=== PATIENT | female | born 1965 | race Caucasian/White ===

== ENCOUNTER 2022-10-25 07:04 | Day surgery (SDC) | payer OTHER, SELFPAY ==
[2022-09-15 08:55] VITALS: BMI 27.7
[2022-10-12 08:41] VITALS: BMI 27.6
--- NOTE | 2022-10-22 08:27 | P.PNAN_ITS ---
Anes - Initial Pre Proc Eval Procedure: Operation Date: 10/25/22 08:30 Proposed Procedures p Screening Colonoscopy - Adryan Case MD Date/Time: 10/22/22 08:27 Surgeon: Adryan Case MD Pre Op Diagnosis: Histoy of Polyps Patient Data Age: 57 Gender: F Height: 1.75 m Weight: 85 kg Allergies Allergy/AdvReac Type Severity Reaction Status Date / Time No Known Allergies Allergy Unknown Verified 10/25/22 07:41 Home Medications Medication Instructions Recorded Confirmed Type baclofen 10 mg tablet 10 mg PO QHS #90 tabs 06/01/22 10/12/22 Rx pantoprazole 40 mg tablet,delayed 40 mg PO QPM #90 tabs 06/01/22 10/12/22 Rx release estradiol 1 mg tablet 1 mg PO DAILY #90 tabs 08/31/22 10/12/22 Rx metoprolol succinate 100 mg 100 mg PO DAILY #90 tabs 08/31/22 10/12/22 Rx tablet,extended release 24 hr medroxyprogesterone 2.5 mg tablet 2.5 mg PO DAILY #90 tabs 09/13/22 10/12/22 Rx sodium,potassium,mag sulfates 17.5 See Rx Instructions PO .COMPLEX 09/15/22 10/25/22 Rx gram-3.13 gram-1.6 gram oral soln #354 mL (Suprep Bowel Prep Kit) sumatriptan succinate 100 mg tablet See Rx Instructions PO .COMPLEX 10/12/22 10/12/22 History PRN Migraine Headache Patient hx anesthesia problems: none Family hx anesthesia problems: none Results Review: All pre-operative results and documents have been reviewed as part of the pre- operative evaluation. COUNTS INCLUDE 234 BEDS AT THE [facility] Past Medical History Medical History (Updated 10/25/22 @ 08:13 by Adryan Case MD) Gastro-esophageal reflux disease without esophagitis Migraines Palpitations Surgical History Surgical History H/O arthroscopy of right knee History of S/P tendon repair Right thumb Family History Family History (Updated 06/01/22 @ 14:11 by Chuckie Marie MA) Grandparent Acute myocardial infarction Cerebrovascular accident Diabetes mellitus Heart disease Hypertension Other Breast cancer Father Hypertension Malignant neoplasm of prostate Social History Social History (Updated 06/01/22 @ 14:11 by Chuckie Marie MA) Smoking status: Never smoker Second hand tobacco smoke exposure: No Alcohol intake: current Substance use: never Substance use type: does not use Living arrangements: with family Gender identity (if verbalized by the patient): Female Spiritual care concerns: No Agree to blood products: Yes Anes - Eval Final PreProcedure Day of Procedure 10/22/22 08:27 Patient weight: overweight Heart: regular rate and rhythm Lungs: clear to auscultation Airway: Mallampati scale class II Neurological: alert and oriented Last oral intake: >/= 8 hours ASA classification: II Emergent: no Anesthetic plan: proceed Anesthesia type and monitoring: general GIVS and standard monitoring Results Review: All pre-operative results and documents have been reviewed as part of the pre- operative evaluation. Informed Consent: The patient's anesthetic plan and its attendant risks and benefits were discussed with the patient/family/POA. Questions were solicited and answers provided to the satisfaction of the patient/family/POA.
[2022-10-25 07:20] VITALS: BP 128/76; PULSE 66; RESP 20; TEMP 37.3; O2SAT 99
[2022-10-25] MEDS: LACTATED RINGERS 1,000 ML 150 ML IV CONT (07:45)
--- NOTE | 2022-10-25 08:11 | PM.HPGS ---
History of Present Illness History of Present Illness Consent: Risks, benefits, and alternatives have been discussed and questions answered. Patient agrees to proceed with procedure. Chief complaint: Histoy of Polyps Narrative: Shannen Carlin is a 57 year old female Presents for colonoscopy. Patient has a history of colon polyps by previous colonoscopy 5 years ago. Polyp at that time was found to be a tubular adenoma. Patient reports that her current weight appetite and bowel movements are normal. Patient denies abdominal pain. She has had no bleeding. Family history is significant her mother had colon polyps. Patient presents today for screening colonoscopy. Review of Systems Review of Systems: Review of systems noncontributory. [facility] Past Medical History Medical History (Updated 10/25/22 @ 08:13 by Adryan Case MD) Gastro-esophageal reflux disease without esophagitis Migraines Palpitations Surgical History Surgical History H/O arthroscopy of right knee History of S/P tendon repair Right thumb Family History Family History (Updated 06/01/22 @ 14:11 by Chuckie Marie MA) Grandparent Acute myocardial infarction Cerebrovascular accident Diabetes mellitus Heart disease Hypertension Other Breast cancer Father Hypertension Malignant neoplasm of prostate Social History Social History (Updated 06/01/22 @ 14:11 by Chuckie Marie MA) Smoking status: Never smoker Second hand tobacco smoke exposure: No Alcohol intake: current Substance use: never Substance use type: does not use Living arrangements: with family Gender identity (if verbalized by the patient): Female Spiritual care concerns: No Agree to blood products: Yes Meds Home Medications and Allergies Home Medications Medication Instructions Recorded Confirmed Type baclofen 10 mg tablet 10 mg PO QHS #90 tabs 06/01/22 10/12/22 Rx pantoprazole 40 mg tablet,delayed 40 mg PO QPM #90 tabs 06/01/22 10/12/22 Rx release estradiol 1 mg tablet 1 mg PO DAILY #90 tabs 08/31/22 10/12/22 Rx metoprolol succinate 100 mg 100 mg PO DAILY #90 tabs 08/31/22 10/12/22 Rx tablet,extended release 24 hr medroxyprogesterone 2.5 mg tablet 2.5 mg PO DAILY #90 tabs 09/13/22 10/12/22 Rx sodium,potassium,mag sulfates 17.5 See Rx Instructions PO .COMPLEX 09/15/22 10/25/22 Rx gram-3.13 gram-1.6 gram oral soln #354 mL (Suprep Bowel Prep Kit) sumatriptan succinate 100 mg tablet See Rx Instructions PO .COMPLEX 10/12/22 10/12/22 History PRN Migraine Headache Allergies Allergy/AdvReac Type Severity Reaction Status Date / Time No Known Allergies Allergy Unknown Verified 10/25/22 07:41 Vital Signs Vital Signs - 24 hr 10/25/22 07:20 Temperature 99.1 F Pulse Rate 66 Respiratory Rate 20 Blood Pressure 128/76 Pulse Oximetry 99 Oxygen Delivery Room Air Exam Narrative: Physical exam reveals patient to be alert. Vital signs stable. HEENT exam is unremarkable. Patient is anicteric. Lungs are clear to auscultation and percussion. Heart is without murmur or extra sounds. Abdomen bowel sounds are present soft nontender with no organomegaly. Digital external rectal exam is normal. Assessment and Plan Assessment and plan (1) History of colon polyps: Code(s): Z86.010 - Personal history of colonic polyps Status: Acute Assessment and Plan: Patient has a history of adenomatous colon polyp removed from the cecum 5 years ago. She also has a family history that her mother had colon polyps. Plan for surveillance colonoscopy now. Consider this in 5 years as well.
[2022-10-25 08:37] VITALS: BP 103/83; PULSE 73; RESP 16; O2SAT 97
[2022-10-25 08:47] VITALS: BP 123/80; PULSE 70; RESP 20; O2SAT 99
[2022-10-25 08:57] VITALS: BP 128/82; PULSE 59; RESP 20; O2SAT 99
--- NOTE | 2022-10-25 12:17 | WPDANESPN ---
Anes - Prog Note Post-Op Date/Time: 10/25/22 12:17 Vital Signs: Last Vital Signs Temp 37.3 C 10/25/22 07:20 Pulse 59 L 10/25/22 08:57 Resp 20 10/25/22 08:57 BP 128/82 10/25/22 08:57 Pulse Ox 99 10/25/22 08:57 O2 Del Method Room Air 10/25/22 08:57 Pain Score (VAS): 0 I/O: Intake & Output 10/24/22 10/25/22 10/25/22 23:59 07:59 15:59 Intake Total 450 Balance 450 Patient Feedback: Patient satisfied with anesthetic care.
== END 2022-10-25 09:18 | disposition home or self-care (01) ==
PROVIDERS: PCP Family Medicine Adolescent Medicine; Visit Provider Internal Medicine Gastroenterology
PROC: 0DJD8ZZ Inspection of Lower Intestinal Tract, Via Natural or Artificial Opening Endoscopic (ICD-10-PCS; CPT 45378; principal; 2022-10-25 08:30)
DX: Z86.010 Personal history of colon polyps (principal)
CPT/HCPCS: 45378

== ENCOUNTER 2023-12-07 07:15 | Day surgery (SDC) | payer OTHER, SELFPAY ==
[2023-11-22 10:09] VITALS: BMI 28.1
[2023-11-22 11:51] VITALS: BMI 28.0
--- NOTE | 2023-12-07 07:59 | WPDANESEPPF ---
Anes - Initial Pre Proc Eval Procedure: Operation Date: 12/07/23 09:30 Proposed Procedures p Esophagogastroduodenoscopy - Adryan Case MD Date/Time: 12/07/23 07:59 Surgeon: Adryan Case MD Pre Op Diagnosis: GERD without esophagitis Patient Data Age: 58 Gender: F Height: 1.75 m Weight: 86 kg Allergies Allergy/AdvReac Type Severity Reaction Status Date / Time No Known Allergies Allergy Unknown Verified 12/07/23 08:19 Home Medications Medication Instructions Recorded Confirmed Type estradiol 1 mg tablet 1 mg PO DAILY #90 tabs 06/03/23 12/07/23 Rx medroxyprogesterone 2.5 mg tablet 2.5 mg PO DAILY #90 tabs 06/03/23 12/07/23 Rx triamcinolone acetonide 0.1 % 1 applic dental TID PRN mouth 07/14/23 12/07/23 Rx dental paste irritation #5 grams baclofen 10 mg tablet 10 mg PO QHS #90 tabs 09/01/23 12/07/23 Rx sumatriptan succinate 100 mg tablet See Rx Instructions PO .COMPLEX 09/16/23 12/07/23 Rx PRN Migraine Headache #9 tabs pantoprazole 40 mg tablet,delayed 40 mg PO BID #90 tabs 11/08/23 12/07/23 Rx release propranolol 40 mg tablet 40 mg PO Q12H #180 tabs 11/08/23 12/07/23 Rx cholecalciferol (vitamin D3) 1,250 1,250 mcg PO WEEKLY #8 caps 11/23/23 12/07/23 Rx mcg (50,000 unit) capsule Patient hx anesthesia problems: none Family hx anesthesia problems: none Results Review: All pre-operative results and documents have been reviewed as part of the pre-operative evaluation. [facility] Past Medical History Medical History Gastro-esophageal reflux disease without esophagitis Migraines Palpitations Surgical History Surgical History H/O arthroscopy of right knee History of S/P tendon repair Right thumb Family History Family History Grandparent Acute myocardial infarction Cerebrovascular accident Diabetes mellitus Heart disease Hypertension Other Breast cancer Father Hypertension Malignant neoplasm of prostate Social History Social History Smoking status: Never smoker Second hand tobacco smoke exposure: No Alcohol intake: current Alcohol use details: socially Substance use: never Substance use type: does not use Lack of Transportation: No Lack of Food: Never True Current Housing: I Have Housing Concerned About Future Housing: No Difficulty Paying Gas/Electric Bills: No Difficulty Paying for Meds: No Currently Unemployed: No Education: Master's Degree or Higher Difficulty w/ Childcare or Family Care: No Living arrangements: with family Occupation/Education: occupation Gender identity (if verbalized by the patient): Female Spiritual care concerns: No Agree to blood products: Yes Anes - Eval Final PreProcedure Day of Procedure 12/07/23 07:59 Patient weight: overweight Heart: regular rate and rhythm Lungs: clear to auscultation Airway: Mallampati scale class II Neurological: alert and oriented Last oral intake: >/= 8 hours ASA classification: II Emergent: no Anesthetic plan: proceed Anesthesia type and monitoring: general GIVS and standard monitoring Results Review: All pre-operative results and documents have been reviewed as part of the pre-operative evaluation. Informed Consent: The patient's anesthetic plan and its attendant risks and benefits were discussed with the patient/family/POA. Questions were solicited and answers provided to the satisfaction of the patient/family/POA.
[2023-12-07 08:28] VITALS: BP 119/63; PULSE 65; RESP 16; TEMP 36.6; O2SAT 99; BMI 28.1
[2023-12-07] MEDS: LACTATED RINGERS 1,000 ML 150 ML IV CONT (08:59)
--- NOTE | 2023-12-07 09:12 | PM.HPGS ---
History of Present Illness History of Present Illness Consent: Risks, benefits, and alternatives have been discussed and questions answered. Patient agrees to proceed with procedure. Chief complaint: GERD without esophagitis Narrative: Shannen Carlin is a 58 year old female presents for EGD. Planes of chest fullness. She has felt have acid reflux. She has been on pantoprazole 40mg p.o. daily Santyl E over the last several weeks she is instructed to take additional pantoprazole 20mg at bedtime. She states symptoms have subsequently improved. Patient denies abdominal pain. She has had no bleeding. We history noncontributory. Because of ongoing substernal pressure consistent with acid reflux follow-up EGD advised at this time. Review of Systems Review of Systems: Review of systems noncontributory. [facility] Past Medical History Medical History Gastro-esophageal reflux disease without esophagitis Migraines Palpitations Surgical History Surgical History H/O arthroscopy of right knee History of S/P tendon repair Right thumb Family History Family History Grandparent Acute myocardial infarction Cerebrovascular accident Diabetes mellitus Heart disease Hypertension Other Breast cancer Father Hypertension Malignant neoplasm of prostate Social History Social History Smoking status: Never smoker Second hand tobacco smoke exposure: No Alcohol intake: current Alcohol use details: socially Substance use: never Substance use type: does not use Lack of Transportation: No Lack of Food: Never True Current Housing: I Have Housing Concerned About Future Housing: No Difficulty Paying Gas/Electric Bills: No Difficulty Paying for Meds: No Currently Unemployed: No Education: Master's Degree or Higher Difficulty w/ Childcare or Family Care: No Living arrangements: with family Occupation/Education: occupation Gender identity (if verbalized by the patient): Female Spiritual care concerns: No Agree to blood products: Yes Meds Home Medications and Allergies Home Medications Medication Instructions Recorded Confirmed Type estradiol 1 mg tablet 1 mg PO DAILY #90 tabs 06/03/23 12/07/23 Rx medroxyprogesterone 2.5 mg tablet 2.5 mg PO DAILY #90 tabs 06/03/23 12/07/23 Rx triamcinolone acetonide 0.1 % 1 applic dental TID PRN mouth 07/14/23 12/07/23 Rx dental paste irritation #5 grams baclofen 10 mg tablet 10 mg PO QHS #90 tabs 09/01/23 12/07/23 Rx sumatriptan succinate 100 mg tablet See Rx Instructions PO .COMPLEX 09/16/23 12/07/23 Rx PRN Migraine Headache #9 tabs pantoprazole 40 mg tablet,delayed 40 mg PO BID #90 tabs 11/08/23 12/07/23 Rx release propranolol 40 mg tablet 40 mg PO Q12H #180 tabs 11/08/23 12/07/23 Rx cholecalciferol (vitamin D3) 1,250 1,250 mcg PO WEEKLY #8 caps 11/23/23 12/07/23 Rx mcg (50,000 unit) capsule Allergies Allergy/AdvReac Type Severity Reaction Status Date / Time No Known Allergies Allergy Unknown Verified 12/07/23 08:19 Vital Signs Vital Signs - 24 hr 12/07/23 08:28 Temperature 98 F Pulse Rate 65 Respiratory Rate 16 Blood Pressure 119/63 Pulse Oximetry 99 Oxygen Delivery Room Air Exam Narrative: Physical exam reveals patient to be alert. Vital signs stable. HEENT exam is unremarkable. Patient is anicteric. Lungs are clear to auscultation and percussion. Heart is without murmur or extra sounds. Abdomen bowel sounds are present soft nontender with no organomegaly. Digital external rectal exam normal. Assessment and Plan Assessment and plan (1) Gastro-esophageal reflux disease without esophagitis: Code(s): K21.9 - Gastro-esophageal reflux disease without esophag
[2023-12-07 09:40] VITALS: BP 119/77; PULSE 65; RESP 16; O2SAT 98
[2023-12-07 09:50] VITALS: BP 127/82; PULSE 65; RESP 16; O2SAT 96
[2023-12-07 10:00] VITALS: BP 124/68; PULSE 60; RESP 16; O2SAT 99
--- NOTE | 2023-12-07 11:03 | SUR.PHASEII ---
1005 Waiting for ride
--- NOTE | 2023-12-07 13:20 | WPDANESPN ---
Anes - Prog Note Post-Op Date/Time: 12/07/23 13:20 Cardiovascular status: normal Respiratory status: normal Airway patency: baseline Mental status: baseline Post-Op hydration status: normal Vital Signs: Last Vital Signs Temp 36.6 C 12/07/23 08:28 Pulse 60 12/07/23 10:00 Resp 16 12/07/23 10:00 BP 124/68 12/07/23 10:00 Pulse Ox 99 12/07/23 10:00 O2 Del Method Room Air 12/07/23 10:00 Pain Score (VAS): 0 I/O: Intake & Output 12/06/23 12/07/23 12/07/23 23:59 07:59 15:59 Intake Total 400 Balance 400 Post-procedural complaints: none Patient Feedback: Patient satisfied with anesthetic care. Other Findings: Patient vital signs back to baseline. Patient denies nausea and vomiting. Patient's pain under control. Patient OK for discharge.
== END 2023-12-07 10:35 | disposition home or self-care (01) ==
PROVIDERS: PCP Family Medicine Adolescent Medicine; Visit Provider Internal Medicine Gastroenterology
PROC: 0DJ08ZZ Inspection of Upper Intestinal Tract, Via Natural or Artificial Opening Endoscopic (ICD-10-PCS; CPT 43235; principal; 2023-12-07 09:30)
DX: K21.9 Gastro-esophageal reflux disease without esophagitis (principal)
CPT/HCPCS: 43239

== ENCOUNTER 2025-03-29 07:49 | Outpatient (CLI) | payer OTHER, SELFPAY ==
--- NOTE | ~2025-03-29 | DEXA_ITS ---
Bone Density Report Name: CHRISTOPHER TREVINO Age: 60 Sex: Female Ethnicity: White Date of : 1965 Indication: postmenopausal; screening for osteoporosis; Referring Provider: MAEVE BAUMANN Study: Bone densitometry was performed. Exam Date: March 29, 2025 Accession number: [id number] Bone Density: Region BMD T-score Z-score Classification AP Spine(L1-L4) 1.000 -0.4 0.9 Normal Femoral Neck (Left) 0.777 -0.6 0.6 Normal Total Hip (Left) 0.984 0.3 1.2 Normal Femoral Neck (Right) 0.751 -0.9 0.3 Normal Total Hip (Right) 0.909 -0.3 0.6 Normal Femoral Neck Mean 0.764 -0.8 0.4 Normal Total Hip Mean 0.946 0.0 0.9 Normal World Health Organization criteria for BMD impression classify patients as: Normal (T-score at or above -1.0), Osteopenia (T-score between -1.0 and -2.5), or Osteoporosis (T-score at or below -2.5). 10-year Fracture Risk: FRAX not reported because: All T-scores for Spine Total, Hip Total, Femoral Neck at or above -1.0 Clinical Information Provided by Patient: Has used the following medications: Vitamin D, Calcium Patient maximum height was 69 Menopause Age: 52 Drinks caffeinated beverages Onset of menses at age 14 Number of children 2 Missed period for more than 6 months in a row Impression: The patient has normal bone mass. Discussion: BONE DENSITY IS ABOVE THE MINIMUM DESIRABLE LEVEL AT ALL SKELETAL SITES TESTED. This patient?s bone mineral density is above the minimum desirable level (T-score -1.0 or better) at all sites measured. The patient should follow a healthful lifestyle (good nutrition with adequate calcium and vitamin D, and appropriate weight-bearing exercise). Follow-Up: Consider repeating this study in 5 years or sooner if there is some new clinical indication. Reported by: JOANNE on 03/29/2025 8:07:00 AM. Reviewed, dictated and finalized at location A.
--- OUTSIDE RECORDS SUMMARY | 2025-03-29 07:54 | XMS_ITS | Clinical Summary ---
Author Organization [facility] al Address [address] [place] [address] Care Team Providers Care Free Lance Model Name Role Phone Esau Jett MD Primary Care Prov ider Allergies No known active allergies Medications ibuprofen (ADVIL,MOTRIN) 600 mg tabletIndicatio ns:stop 5 days before surgery Take 600 mg by mouth every 6 (six) hours as needed for pain Active acetaminophen-a spirin-caffeine (EXCEDRIN MIGRAINE) 250-250-65 mg per tabletIndicatio ns:stop 5 days before surgery Take 1 tablet by mouth every 6 (six) hours as needed Active diclofenac sodium (VOLTAREN) 1 % gel Apply 2 g topically 4 (four) times a day 1 Tube 0 Active Additional Information Patient not taking.Reported on 07/09/2021 baclofen (LIORESAL) 10 mg tablet Take 10 mg by mouth nightly Active dilTIAZem CD/XR/XT (CARDIZEM CD,DILACOR XR) 120 mg 24 hr capsule Take 1 capsule (120 mg total) by mouth daily 30 capsule 11 1 Active Additional Information Patient not taking.Reported on 07/09/2021 estradiol-noret hindrone (ACTIVELLA) 0.5-0.1 mg per tablet Take 1 tablet by mouth daily 1 Active Active Problems Problem Noted Date Diagnosed Date Tear of lateral meniscus of right knee, current 12/28/2018 Overview (12/28/2018): Added automatically from request for surgery [id number] Irregular menses 02/24/2015 Mammogram abnormal 05/14/2013 Encounters Date Type Department Care Team Description 02/12/2025 2:56 PM CDT - 02/12/2025 11:59 PM CDT Hospital Encounter [facility] - Breast Imaging [address] [place] [address] Abnormality of left breast on screening mammography Discharge Disposition: Discharge to home or self care 02/12/2025 2:56 PM CDT - 02/12/2025 11:59 PM CDT Hospital Encounter [facility] - Breast Imaging [address] [place] [address] Abnormality of left breast on screening mammography Discharge Disposition: Discharge to home or self care 02/06/2025 11:00 AM CDT - 02/06/2025 11:59 PM CDT Hospital Encounter [facility] [address] [place] [address] Screening mammogram, encounter for Discharge Disposition: Discharge to home or self care from Last 3 Months Surgical History Surgery Date Site/Laterality Comments SECTION x 2 CYSTOSCOPY for Kidney Stones WISDOM TOOTH EXTRACTION TENDON REPAIR Right Thumb Medical History Medical History Date Comments Hx Other Medical 1996 and 1999 Kidney stone Family History Medical History Relation Name Comments Cancer Other 1 Family history of Cancer, unknown; Arthritis Other 2 Family history of Arthritis; Hypertension Other 3 Family history of Hypertension; Diabetes type II Other 4 Family hist ory of Diabetes mellitus type 2; Relation Name Status Comments Other 1 Other 2 Other 3 Other 4 Social History Tobacco Use Types Packs/Day Years Used Date Smoking Tobacco: Never Smokeless Tobacco: Never Alcohol Use Standard Drinks/Week Comments Yes 0 (1 standard drink = 0.6 oz pur e alcohol) occasionally Comments No Sex and Gender Information Value Date Recorded Sex Assigned at Not on file Legal 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 Gender Identity Not on file Sexual Orientation Not on file Obstetrics History Last Filed Vital Signs Vital Sign Reading Time Taken Comments Blood Pressure 127/73 07/09/2021 2:59 PM CDT Pulse 71 07/09/2021 2:59 PM CDT Temperature 37.1 C (98.8 F) 01/11/2019 1:52 PM CDT Respiratory Rate 15 05/18/2021 7:57 AM CDT Oxygen Saturation 100% 01/11/2019 1:52 PM CDT Inhaled Oxygen Concentration - - Weight 80.1 kg (176 lb 9.6 oz) 07/09/2021 2:59 P M CDT Height 175.3 cm (5' 9) 07/09/2021 2:59 PM CDT Body Mass Index 26.08 07/09/2021 2:59 PM CDT Plan of Treatment Health Maintenance Due Date Last Done Comments Cervical Cancer Screening 1965 Colon Cancer Screening-Colonoscopy 1965 Depression Screening 1967 Hepatitis C Screening 1967 Hepatitis B Screening 1985 Regular Well Visit/Exam 18-64 1985 Zoster Vaccine (1 of 2) 2017 DTaP/Tdap/Td Vaccine (2 - Td or Tdap) 06/21/2023 06/21/2013 Influenza Vaccine (Season Ended) 2025 Breast Cancer Screening-Mammogram 02/06/2026 02/06/2025, 01/25/2024, 12/27/2022, Additional history exists Pneumococcal vaccine <65 Aged Out No longer eligible based on patient's age to complete this topic Procedures Procedure Name Priority Date/Time Associated Diagnosis Comments US BREAST LEFT LIMITED Routine 02/12/2025 3:49 PM CDT Abnormality of left breast on screening mammography DIAGNOSTIC MAMMOGRAM LEFT W JIAN Routine 02/12/2025 3:14 PM CDT Abnormality of left breast on screening mammography SCREENING MAMMOGRAM BILATERAL W JIAN Schedule Routine, Read Routine (OP Routine) 02/06/2025 11:14 AM CDT Screening mammogram, encounter for from Last 3 Months Results * US Breast Left Limited (02/12/2025 3:49 PM CDT) Anatomical Region Laterality Modality Breast Left Ultrasound 02/12/2025 4:20 PM CDT Impressions 02/12/2025 4:20 PM CDT 1 cm LEFT breast cyst at the site of the previously noted focal asymmetry. Incidentally noted left breast mass demonstrating long-term stability since at least 2012. OVERALL FINAL ASSESSMENT: BI-RADS Category 2: Benign. RECOMMENDATION: Annual screening mammography is recommended. Dictated by: Juan José Ann M.D. (Ramanan) The radiology attending physician has personally reviewed this study, and had reviewed and/or edited this written report and agrees with it. Electronically signed by: Sera Murphy M.D. Narrative 02/12/2025 4:20 PM CDT EXAMINATION: LEFT UNILATERAL DIGITAL DIAGNOSTIC MAMMOGRAM AND DIGITAL BREAST TOMOSYNTHESIS; LEFT BREAST SONOGRAM HISTORY: 60-year-old female who presents as a screening call back for a LEFT breast focal asymmetry. COMPARISON: Mammograms dating as far back as 2014 TECHNIQUE: Full field digital mammographic views of the LEFT breast were performed, including computer aided detection (CAD) and digital breast tomosynthesis (DBT). Directed ultrasound evaluation of the LEFT breast was performed. BREAST PARENCHYMAL COMPOSITION: The breasts are heterogeneously dense, which may obscure small masses. MAMMOGRAM FINDINGS: Again seen is a round mass in the inferior outer LEFT breast approximately 1 cm from the nipple. There are no new suspicious masses or calcifications in the LEFT breast. SONOGRAM FINDINGS: Targeted ultrasound of the left breast, 9:00 subareolar region was performed. There is a 0.6 x 0.9 x 1.0 cm (length by width by height) cyst. There is an incidentally noted 1.9 x 1.4 x 0.6 cm circumscribed, parallel mass in the left breast 2:00 2 cm from the nipple, unchanged from 2013. Procedure Note Sera Murphy MD - 02/12/2025 EXAMINATION: LEFT UNILATERAL DIGITAL DIAGNOSTIC MAMMOGRAM AND DIGITAL BREAST TOMOSYNTHESIS; LEFT BREAST SONOGRAM HISTORY: 60-year-old female who presents as a screening call back for a LEFT breast focal asymmetry. COMPARISON: Mammograms dating as far back as 2014 TECHNIQUE: Full field digital mammographic views of the LEFT breast were performed, including computer aided detection (CAD) and digital breast tomosynthesis (DBT). Directed ultrasound evaluation of the LEFT breast was performed. BREAST PARENCHYMAL COMPOSITION: The breasts are heterogeneously dense, which may obscure small masses. MAMMOGRAM FINDINGS: Again seen is a round mass in the inferior outer LEFT breast approximately 1 cm from the nipple. There are no new suspicious masses or calcifications in the LEFT breast. SONOGRAM FINDINGS: Targeted ultrasound of the left breast, 9:00 subareolar region was performed. There is a 0.6 x 0.9 x 1.0 cm (length by width by height) cyst. There is an incidentally noted 1.9 x 1.4 x 0.6 cm circumscribed, parallel mass in the left breast 2:00 2 cm from the nipple, unchanged from 2013. IMPRESSION: 1 cm LEFT breast cyst at the site of the previously noted focal asymmetry. Incidentally noted left breast mass demonstrating long-term stability since at least 2012. OVERALL FINAL ASSESSMENT: BI-RADS Category 2: Benign. RECOMMENDATION: Annual screening mammography is recommended. Dictated by: Juan José Ann M.D. (Ramanan) The radiology attending physician has personally reviewed this study, and had reviewed and/or edited this written report and agrees with it. Electronically signed by: Sera Murphy M.D. Esau Jett MD IMG MAMMO PROCEDUR ES Final Result * Diagnostic Mammogram Left W Jian (02/12/2025 3:14 PM CDT) Anatomical Region Laterality Modality Breast Left Mammography 02/12/2025 3:40 PM CDT Impressions 02/12/2025 4:20 PM CDT 1 cm LEFT breast cyst at the site of the previously noted focal asymmetry. Incidentally noted left breast mass demonstrating long-term stability since at least 2012. OVERALL FINAL ASSESSMENT: BI-RADS Category 2: Benign. RECOMMENDATION: Annual screening mammography is recommended. Dictated by: Juan José Ann M.D. (Ramanan) The radiology attending physician has personally reviewed this study, and had reviewed and/or edited this written report and agrees with it. Electronically signed by: Sera Murphy M.D. Narrative 02/12/2025 4:20 PM CDT EXAMINATION: LEFT UNILATERAL DIGITAL DIAGNOSTIC MAMMOGRAM AND DIGITAL BREAST TOMOSYNTHESIS; LEFT BREAST SONOGRAM HISTORY: 60-year-old female who presents as a screening call back for a LEFT breast focal asymmetry. COMPARISON: Mammograms dating as far back as 2014 TECHNIQUE: Full field digital mammographic views of the LEFT breast were performed, including computer aided detection (CAD) and digital breast tomosynthesis (DBT). Directed ultrasound evaluation of the LEFT breast was performed. BREAST PARENCHYMAL COMPOSITION: The breasts are heterogeneously dense, which may obscure small masses. MAMMOGRAM FINDINGS: Again seen is a round mass in the inferior outer LEFT breast approximately 1 cm from the nipple. There are no new suspicious masses or calcifications in the LEFT breast. SONOGRAM FINDINGS: Targeted ultrasound of the left breast, 9:00 subareolar region was performed. There is a 0.6 x 0.9 x 1.0 cm (length by width by height) cyst. There is an incidentally noted 1.9 x 1.4 x 0.6 cm circumscribed, parallel mass in the left breast 2:00 2 cm from the nipple, unchanged from 2013. Procedure Note Sera Murphy MD - 02/12/2025 EXAMINATION: LEFT UNILATERAL DIGITAL DIAGNOSTIC MAMMOGRAM AND DIGITAL BREAST TOMOSYNTHESIS; LEFT BREAST SONOGRAM HISTORY: 60-year-old female who presents as a screening call back for a LEFT breast focal asymmetry. COMPARISON: Mammograms dating as far back as 2014 TECHNIQUE: Full field digital mammographic views of the LEFT breast were performed, including computer aided detection (CAD) and digital breast tomosynthesis (DBT). Directed ultrasound evaluation of the LEFT breast was performed. BREAST PARENCHYMAL COMPOSITION: The breasts are heterogeneously dense, which may obscure small masses. MAMMOGRAM FINDINGS: Again seen is a round mass in the inferior outer LEFT breast approximately 1 cm from the nipple. There are no new suspicious masses or calcifications in the LEFT breast. SONOGRAM FINDINGS: Targeted ultrasound of the left breast, 9:00 subareolar region was performed. There is a 0.6 x 0.9 x 1.0 cm (length by width by height) cyst. There is an incidentally noted 1.9 x 1.4 x 0.6 cm circumscribed, parallel mass in the left breast 2:00 2 cm from the nipple, unchanged from 2013. IMPRESSION: 1 cm LEFT breast cyst at the site of the previously noted focal asymmetry. Incidentally noted left breast mass demonstrating long-term stability since at least 2012. OVERALL FINAL ASSESSMENT: BI-RADS Category 2: Benign. RECOMMENDATION: Annual screening mammography is recommended. Dictated by: Juan José Ann M.D. (Ramanan) The radiology attending physician has personally reviewed this study, and had reviewed and/or edited this written report and agrees with it. Electronically signed by: Sera Murphy M.D. us Esau Jett MD IMG MAMMO PROCEDUR ES Final Result * Screening Mammogram Bilateral W Jian (02/06/2025 11:14 AM CDT) Anatomical Region Laterality Modality Breast Bilateral Mammography Narrative 02/07/2025 2:11 PM CDT Mammogram Technique: Bilateral Digital Breast Tomosynthesis, Bilateral C-view 2D Screening mammogram. Views obtained: bilateral craniocaudal and bilateral mediolateral oblique. Computer Aided Detection was performed. Mammogram Findings: The present examination has been compared to prior imaging studies performed at [facility] on 09/04/2020, 11/06/2021, 12/27/2022 and 01/25/2024. The breasts are heterogeneously dense, which may obscure small masses. There is a round mass with circumscribed and obscured margins in the subareolar area of the left breast. There is no suspicious abnormality in the right breast. Impression: Mass in the left breast requires additional evaluation. Diagnostic mammogram and possible ultrasound of the left breast are recommended at this time. OVERALL FINAL ASSESSMENT: BI-RADS CATEGORY 0: Incomplete: Need additional imaging evaluation. Procedure Note Jen Pfeiffer MD - 02/07/2025 Mammogram Technique: Bilateral Digital Breast Tomosynthesis, Bilateral C-view 2D Screening mammogram. Views obtained: bilateral craniocaudal and bilateral mediolateral oblique. Computer Aided Detection was performed. Mammogram Findings: The present examination has been compared to prior imaging studies performed at [facility] on 09/04/2020, 11/06/2021, 12/27/2022 and 01/25/2024. The breasts are heterogeneously dense, which may obscure small masses. There is a round mass with circumscribed and obscured margins in the subareolar area of the left breast. There is no suspicious abnormality in the right breast. Impression: Mass in the left breast requires additional evaluation. Diagnostic mammogram and possible ultrasound of the left breast are recommended at this time. OVERALL FINAL ASSESSMENT: BI-RADS CATEGORY 0: Incomplete: Need additional imaging evaluation. us Self Screening Mammogram IMG MAMMO PROCEDURES Fi nal Result from Last 3 Months Insurance [facility] CHOICE PLUS [facility] CHOICE PLUS Care Teams Free Lance Model Relationship Specialty Start Date End Date Esau Jett MD [address] [place] [address] PCP - General 07/17/19
--- OUTSIDE RECORDS SUMMARY | 2025-03-29 07:54 | XMS_ITS | Referral Summary ---
Author Organization [facility] al Address [address] [place] [address] Care Team Providers Care Electric Fork Operator Name Role Phone Esau Jett MD Primary Care Prov ider Encounters Date Type Department Care Team Description 02/12/2025 2:56 PM CDT - 02/12/2025 11:59 PM CDT Hospital Encounter [facility] - Breast Imaging [address] [place] [address] [address] [place] [address] Abnormality of left breast on screening mammography Discharge Disposition: Discharge to home or self care 02/12/2025 2:56 PM CDT - 02/12/2025 11:59 PM CDT Hospital Encounter [facility] - Breast Imaging [address] [place] [address] [address] [place] [address] Abnormality of left breast on screening mammography Discharge Disposition: Discharge to home or self care 02/06/2025 11:00 AM CDT - 02/06/2025 11:59 PM T Hospital Encounter [facility] [address] [place] [phone] Screening mammogram, encounter for Discharge Disposition: Discharge to home or self care from Last 3 Months Allergies No known active allergies Medications ibuprofen [...] (12/28/2018): Added automatically from request for surgery [id number] Irregular menses 02/24/2015 Mammogram abnormal 05/14/2013 Social History Tobacco Use Types Packs/Day Years Used Date Smoking Tobacco: Never Smokeless Tobacco: Never Alcohol Use Standard Drinks/Week Comments Yes 0 (1 standard drink = 0.6 oz pur e alcohol) occasionally Comments No Sex and Gender Information Value Date Recorded Sex Assigned at Not on file 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 The [...] compared to prior imaging studies performed at [facility] on 09/04/2020, 11/06/2021, 12/27/2022 and 01/25/2024. The [...] nal Result from Last [address] [facility] HMO/PPO Address: [facility] [id number] [place] [phone] [facility] CHOICE PLUS [facility] HMO/PPO Address: [address] [address] [place] [address] [facility] CHOICE PLUS [facility] HMO/PPO Address: [address] [address] [place] [address] Care Teams Electric Fork Operator Relationship Specialty Start Date End Date Esau Jett MD [address] [place] [address] PCP - General 07/17/19
== END 2025-03-29 07:50 | disposition home or self-care (01) ==
LOC: CHSIMG 07:50
PROVIDERS: PCP Family Medicine Adolescent Medicine; Visit Provider Family Medicine Adolescent Medicine
DX: Z78.0 Asymptomatic menopausal state (principal)
CPT/HCPCS: 77080